=== PATIENT | female | born 1985 | race Caucasian/White ===

== ENCOUNTER 2016-07-07 19:14 | Emergency (ER) | payer MEDICAID ==
[~2016-07-07] VITALS: Ht 154.9 cm; Wt 79.4 kg
[2016-07-07 19:37] VITALS: BP 143/88; PULSE 110; RESP 19; TEMP 99.3; O2SAT 99
--- NOTE | 2016-07-07 19:40 | NUR ---
Patient to [facility].
--- NOTE | 2016-07-07 19:45 | NUR ---
Pt came in for on and off headache since tuesday. Pt rates her pain 9/10 with photophobia. Reports nausea, vomitting, and diarrhea. No relief with home meds. Will continue to monitor. No distress noted.
--- NOTE | 2016-07-07 19:51 | NUR ---
PT PROVIDED WITH URINE CUP
--- NOTE | 2016-07-07 20:10 | NUR ---
FEDE Santiago examing pt.
[2016-07-07] MEDS ORDERED: KETOROLAC TROMETHAMINE 60 MG/2 ML VIAL IM ONE (20:30)
[2016-07-07 20:36] LABS: BILIRUBIN,URINE NEGATIVE (NEGATIVE); BLOOD, URINE NEGATIVE (NEGATIVE); CLARITY/URINE CLEAR (CLEAR); COLOR,URINE YELLOW (YELLOW); GLUCOSE,URINE NEGATIVE (NEGATIVE); KETONES,URINE NEGATIVE (NEGATIVE); LEUKOCYTE ESTERASE ,URINE NEGATIVE (NEGATIVE); NITRITE, URINE NEGATIVE (NEGATIVE); PROTEIN URINE NEGATIVE (NEGATIVE); UROBILINOGEN,URINE 0.2 (0.2-1.0)
[2016-07-07] MEDS ORDERED: NACL 0.9% 1,000 ML IV ONE (21:30)
[2016-07-07] MEDS ORDERED: MORPHINE 4 MG/ML INJ. SYRINGE IVP ONE (22:30)
[2016-07-07] MEDS ORDERED: chlorproMAZINE HCL 50 MG/ 2 ML AMP IVP ONE (23:30)
[2016-07-07] MEDS ORDERED: DIPHENHYDRAMINE INJ 50 MG/ML VIAL IVP ONE (23:30)
[2016-07-07] MEDS ORDERED: DIPHENHYDRAMINE INJ 50 MG/ML VIAL ONE (23:55)
[2016-07-08] MEDS ORDERED: NACL 0.9% 500 ML IV ONE
[2016-07-08] MEDS ORDERED: DIPHENHYDRAMINE INJ 50 MG/ML VIAL IVP ONE
--- NOTE | 2016-07-08 | NUR ---
Pt started getting really anxious and couldn't relax after the thorazine. HAZEL holguin made aware. Another 25 mg of benadryl to be ordered.
[2016-07-08 00:35] VITALS: BP 119/70; PULSE 68; RESP 18; TEMP 98.4; O2SAT 99
--- NOTE | 2016-07-08 00:35 | NUR ---
Patient given written and verbal discharge instructions and verbalizes understanding. ER WHE[employer] INSPECTOR discussed with patient the results and treatment provided. Patient in stable condition. ID arm band removed. IV catheter removed intact and dressing applied, no active bleeding. Rx of Motrin given. Patient educated on pain management and to follow up with PMD. Pain Scale 0/10. Opportunity for questions provided and answered.
== END 2016-07-08 00:35 | disposition home or self-care (01) ==
LOC: SED 19:14
DX: G43.909 Migraine, unspecified, not intractable, without status migrainosus (principal); J45.909 Unspecified asthma, uncomplicated
CPT/HCPCS: 70450; 81003; 81025; 93005; 96361; 96372; 96374; 96375; 96376; 99285; J1200; J1885; J2270; J3230; J7030; J7040

== ENCOUNTER 2017-04-04 14:46 | Emergency (ER) | payer MEDICAID ==
[~2017-04-04] VITALS: Ht 154.9 cm; Wt 81.6 kg
[2017-04-04 14:49] VITALS: BP_SYST 145
--- NOTE | 2017-04-04 14:53 | NUR ---
Pt placed to ER waiting room in stable condition.
--- NOTE | 2017-04-04 15:23 | NUR ---
Pt placed to ER bed 07, to gown, report given to JODEE Ocampo.
--- NOTE | 2017-04-04 15:25 | NUR ---
Pt brought by self,A&Ox4, pt states she is 13-14 weeks ,c/o lower abdominal cramping and brownish spotting , skin pink and warm,cap refill<3, VS WNL, skin pink and warm, respirations even and unlabored.
--- NOTE | 2017-04-04 16:00 | NUR ---
Dr Balderrama at bedside examining patient
[2017-04-04 16:24] LABS: BILIRUBIN,URINE NEGATIVE (NEGATIVE); BLOOD, URINE NEGATIVE (NEGATIVE); CLARITY/URINE CLEAR (CLEAR); COLOR,URINE YELLOW (YELLOW); GLUCOSE,URINE NEGATIVE (NEGATIVE); KETONES,URINE NEGATIVE (NEGATIVE); LEUKOCYTE ESTERASE ,URINE NEGATIVE (NEGATIVE); NITRITE, URINE NEGATIVE (NEGATIVE); PH,URINE 6.5 (5.0-8.0); PROTEIN URINE NEGATIVE (NEGATIVE); UROBILINOGEN,URINE 0.2 (0.2-1.0)
[2017-04-04 17:28] VITALS: BP_SYST 142
--- NOTE | 2017-04-04 17:30 | NUR ---
Patient given written and verbal discharge instructions and verbalizes understanding. ER MD discussed with patient the results and treatment provided. Patient in stable condition. ID arm band removed. No prescriptions given. Patient educated on pain management and to follow up with PMD. Pain Scale 0/10 Opportunity for questions provided and answered.
== END 2017-04-04 17:28 | disposition home or self-care (01) ==
LOC: SED 14:46
DX: O26.892 Other specified pregnancy related conditions, second trimester (principal); R10.30 Lower abdominal pain, unspecified; R03.0 Elevated blood-pressure reading, without diagnosis of hypertension; R19.7 Diarrhea, unspecified; J45.909 Unspecified asthma, uncomplicated; Z3A.14 14 weeks gestation of pregnancy
CPT/HCPCS: 76805-TC; 81003; 81025; 99285

== ENCOUNTER 2017-07-06 16:05 | Observation (INO) | payer MEDICAID ==
[~2017-07-06] VITALS: Ht 154.9 cm; Wt 91.6 kg
== END 2017-07-06 17:10 | disposition home or self-care (01) ==
LOC: SPU 16:05
PROVIDERS: ADMIT Obstetrics & Gynecology; ATTEND Obstetrics & Gynecology
DX: O26.893 Other specified pregnancy related conditions, third trimester (principal); R10.9 Unspecified abdominal pain; Z3A.29 29 weeks gestation of pregnancy
CPT/HCPCS: 81002-TC; G0378

== ENCOUNTER 2017-08-31 12:24 | Observation (INO) | payer MEDICAID ==
[~2017-08-31] VITALS: Ht 154.9 cm; Wt 96.2 kg
[2017-08-31 12:59] LABS: BILIRUBIN,URINE NEGATIVE (NEGATIVE); BLOOD, URINE NEGATIVE (NEGATIVE); CLARITY/URINE SL HAZY (CLEAR); COLOR,URINE YELLOW (YELLOW); GLUCOSE,URINE NEGATIVE (NEGATIVE); KETONES,URINE NEGATIVE (NEGATIVE); LEUKOCYTE ESTERASE ,URINE NEGATIVE (NEGATIVE); NITRITE, URINE NEGATIVE (NEGATIVE); PROTEIN URINE NEGATIVE (NEGATIVE); UROBILINOGEN,URINE 0.2 (0.2-1.0)
[2017-08-31 13:01] LABS: BASOPHILS % (AUTO) 0.2 % (0.0-2.0); EOSINOPHILS # (AUTO) 0.1 K/uL (0.0-0.4); EOSINOPHILS % (AUTO) 0.6 % (0.0-4.0); HEMATOCRIT 38.6 % (36-48); LYMPHOCYTES # (AUTO) 1.3 K/uL (1.0-5.5); LYMPHOCYTES % (AUTO) 13.4 % (20.5-51.5); MEAN CORPUSCULAR HEMOGLOBIN 29 pg (27-31); MEAN CORPUSCULAR HGB CONC 34 % (32-36); MEAN CORPUSCULAR VOLUME 84 fL (79.0-98.0); MONOCYTES # (AUTO) 0.5 K/uL (0.0-1.0); MONOCYTES % (AUTO) 5.2 % (1.7-9.3); NEUTROPHILS # (AUTO) 7.5 K/uL (1.8-7.7); NEUTROPHILS % (AUTO) 80.6 % (40.0-70.0); PLATELET COUNT (AUTO) 204 K/uL (130-430); RED BLOOD CELL COUNT(AUTO) 4.58 MIL/uL (4.2-6.2); RED CELL DISTRIBUTION WIDTH 12.8 % (9.0-15.0); WHITE BLOOD COUNT (AUTO) 9.4 K/uL (4.8-10.8)
[2017-08-31 13:12] LABS: INR 0.9 (0.8-1.2); PROTHROMBIN TIME 9.2 SECS (9.5-12.5)
[2017-08-31 13:13] LABS: ALBUMIN 2.3 g/dL (3.4-4.8); CREATININE 0.5 mg/dL (0.55-1.30); POTASSIUM 3.7 mmol/L (3.5-5.1); TOTAL BILIRUBIN 0.3 mg/dL (0.0-1.0)
[2017-08-31] MEDS: LR 1,000 ML IV SCH (15:34)
[2017-08-31] MEDS ORDERED: LR 1,000 ML IV ONE (17:00)
[2017-08-31] MEDS: MAGNESIUM SULFATE IN WATER 100 ML IV ONE (17:59)
[2017-08-31] MEDS: MAGNESIUM SULFATE IN WATER 500 ML IV PRN (18:26)
== END 2017-08-31 21:35 | disposition short-term general hospital (02) ==
LOC: SPU 12:24
PROVIDERS: ADMIT Obstetrics & Gynecology; ATTEND Obstetrics & Gynecology
DX: O13.3 Gestational [pregnancy-induced] hypertension without significant proteinuria, third trimester (principal); O26.853 Spotting complicating pregnancy, third trimester; Z3A.37 37 weeks gestation of pregnancy
CPT/HCPCS: 36415; 76805-TC; 80053; 81002-TC; 81003; 85025; 85610-TC; 85730-TC; 94760; 96361; 96365; 96366; G0378; J3475

== ENCOUNTER 2018-11-11 23:09 | Emergency (ER) | payer MEDICAID ==
[~2018-11-11] VITALS: Ht 154.9 cm; Wt 88.5 kg
[2018-11-11 23:10] VITALS: BP_SYST 136
== END 2018-11-11 23:45 | disposition left against medical advice (07) ==
LOC: SED 23:09
DX: M54.6 Pain in thoracic spine (principal); J02.9 Acute pharyngitis, unspecified; R11.0 Nausea; Z53.21 Procedure and treatment not carried out due to patient leaving prior to being seen by health care provider

== ENCOUNTER 2019-07-21 10:43 | Emergency (ER) | payer MEDICAID ==
[~2019-07-21] VITALS: Ht 154.9 cm; Wt 78.9 kg
[2019-07-21 10:43] VITALS: BP_SYST 148
[2019-07-21 12:13] LABS: BASOPHILS # (AUTO) 0.1 K/uL (0.0-0.2); BASOPHILS % (AUTO) 0.7 % (0.0-2.0); EOSINOPHILS # (AUTO) 0.1 K/uL (0.0-0.4); HEMATOCRIT 43.1 % (36-48); HEMOGLOBIN 14.5 g/dL (12.0-16.0); LYMPHOCYTES % (AUTO) 26.9 % (20.5-51.5); MEAN CORPUSCULAR HEMOGLOBIN 29 pg (27-31); MEAN CORPUSCULAR HGB CONC 34 % (32-36); MEAN CORPUSCULAR VOLUME 87 fL (79.0-98.0); MONOCYTES # (AUTO) 0.3 K/uL (0.0-1.0); MONOCYTES % (AUTO) 4.6 % (1.7-9.3); NEUTROPHILS # (AUTO) 4.8 K/uL (1.8-7.7); NEUTROPHILS % (AUTO) 66.8 % (40.0-70.0); PLATELET COUNT (AUTO) 250 K/uL (130-430); RED BLOOD CELL COUNT(AUTO) 4.97 MIL/uL (4.2-6.2); RED CELL DISTRIBUTION WIDTH 12.9 % (9.0-15.0); WHITE BLOOD COUNT (AUTO) 7.2 K/uL (4.8-10.8)
[2019-07-21 12:37] LABS: ANION GAP 9 (5-15); CALCIUM 9.2 mg/dL (8.4-11.0); CHLORIDE 105 mmol/L (98-107); CREATININE 0.71 mg/dL (0.55-1.30); GLUCOSE 114 mg/dL (70-99); POTASSIUM 3.2 mmol/L (3.5-5.1); SODIUM SERUM 140 mmol/L (136-145); UREA NITROGEN, BLOOD 12 mg/dL (8-21)
[2019-07-21 12:39] LABS: PROTHROMBIN TIME 9.6 SECS (9.5-12.5)
[2019-07-21 12:40] LABS: GFR AFRICAN AMERICAN 121 mL/min (>90)
[2019-07-21 12:53] LABS: ALANINE AMINOTRANSFERASE 29 U/L (12-78); ALBUMIN 3.6 g/dL (3.4-4.8); ASPARTATE AMINOTRANSFERASE 14 U/L (10-37); FREE T4 (FREE THYROXINE) 0.8 ng/dl (0.8-1.5); TOTAL BILIRUBIN 0.2 mg/dL (0.0-1.0)
[2019-07-21 12:57] LABS: ALCOHOL, BLOOD < 3 mg/dL (<10)
[2019-07-21] MEDS: KETOROLAC TROMETHAMINE 30 MG VIAL IVP ONE (13:11)
[2019-07-21 13:24] VITALS: BP_SYST 131
[2019-07-21 13:31] LABS: BILIRUBIN,URINE NEGATIVE (NEGATIVE); CLARITY/URINE CLEAR (CLEAR); COLOR,URINE YELLOW (YELLOW); GLUCOSE,URINE NEGATIVE (NEGATIVE); KETONES,URINE NEGATIVE (NEGATIVE); LEUKOCYTE ESTERASE ,URINE NEGATIVE (NEGATIVE); NITRITE, URINE NEGATIVE (NEGATIVE); PH,URINE 6.5 (5.0-8.0); PROTEIN URINE NEGATIVE (NEGATIVE); UROBILINOGEN,URINE 0.2 (0.2-1.0)
[2019-07-21 13:44] LABS: BLOOD, URINE TRACE (NEGATIVE)
[2019-07-21 13:55] LABS: BARBITURATE, URINE NEGATIVE (NEG <=200); BENZODIAZEPINE, URINE NEGATIVE (NEG <=150); CANNABINOID, URINE NEGATIVE (NEG <=50); METHAMPHETAMINES SCREEN,URINE NEGATIVE (NEG <=500); OPIATE, URINE NEGATIVE (NEG <=100); PHENCYCLIDINE SCREEN,URINE NEGATIVE (NEG <=25); URINE METHADONE NEGATIVE (NEG <=200); URINE OXYCODONE SCREEN NEGATIVE (NEG <=100); URINE PROPOXYPHENE SCREEN NEGATIVE (NEG <=300)
[2019-07-21 13:56] LABS: COCAINE, URINE NEGATIVE (NEG <=150); UR TRICYCLIC ANTIDEPRESSANTS NEGATIVE (NEG <=300); URINE AMPHETAMINE POSITIVE (NEG <=500)
[2019-07-21 14:03] LABS: BACTERIA,URINE RARE /HPF (None Seen); MUCUS,URINE 1+ /LPF (None Seen); RBC,URINE 0-3 /HPF (0-3); WBC,URINE 0-3 /HPF (0-3)
== END 2019-07-21 13:24 | disposition home or self-care (01) ==
LOC: SED 10:43
DX: F15.10 Other stimulant abuse, uncomplicated (principal); J45.909 Unspecified asthma, uncomplicated
CPT/HCPCS: 36415; 36600; 71045; 80053; 80307; 81000; 81025; 82803; 83605; 83880; 84439; 84484; 85025; 85379; 85610; 87040; 93005; 96374; 99285; G0482; J1885